=== PATIENT | female | born 1990 | race Caucasian/White ===

== ENCOUNTER → 2018-11-13 | Outpatient (CLI) | payer OTHER ==
--- NOTE | 2018-11-13 21:40 | REP ---
Clinical: Trauma. Technique: AP, lateral, bilateral oblique views right wrist . Findings: The carpal bones, surrounding osseous structures, soft tissues, and joint spaces are normal. There is no evidence for acute fracture or dislocation. No subcutaneous emphysema or radiodense foreign body. Impression: Normal right wrist series. No acute fracture or dislocation Electronically Signed by Maldonado Reyes MD 11/13/2018 09:31 P
--- NOTE | 2018-11-13 21:57 | REP ---
Clinical: Contusion. Technique: AP and lateral views of the right forearm. Findings: No acute fracture dislocation. Skeletal structures, joint spaces, and surrounding soft tissues are normal. Impression: Normal right forearm. Electronically Signed by Maldonado Reyes MD 11/13/2018 09:48 P
== END ==
LOC: M WUC 11:03
PROVIDERS: ATTEND Physician Assistant
DX: S50.11XA Contusion of right forearm, initial encounter (principal); X58.XXXA Exposure to other specified factors, initial encounter; Y92.89 Other specified places as the place of occurrence of the external cause